=== PATIENT | female | born 1950 | race Caucasian/White ===

== ENCOUNTER 2016-12-13 13:30 | Emergency (ER) | payer OTHER ==
[~2016-12-13] VITALS: Ht 162.6 cm; Wt 75.0 kg
[2016-12-13 13:31] VITALS: BP 133/74; PULSE 87; RESP 15; TEMP 97.8; O2SAT 98
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
[2016-12-13] MEDS ORDERED: IBUPROFEN 800 MG TAB PO ONE (15:00)
[2016-12-13] MEDS ORDERED: ROBA500T PO (15:27)
[2016-12-13] MEDS ORDERED: IBUP-232 PO (15:27)
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
--- NOTE | 2016-12-13 22:29 | EKG ---
Date Performed: 12/13/2016 Time Performed: 15:12:42 PTAGE: 66 years EKG: Sinus rhythm WITH SINUS ARRHYTHMIA POSSIBLE RIGHT VENTRICULAR CONDUCTION DELAY BORDERLINE ECG NO PREVIOUS TRACING DOCTOR: Neva Jorgensen Interpretating Date/Time 12/13/2016 22:27:35
== END 2016-12-13 16:01 | disposition home or self-care (01) ==
LOC: NETRI 13:30
DX: S20.219A Contusion of unspecified front wall of thorax, initial encounter (principal); R94.31 Abnormal electrocardiogram [ECG] [EKG]; V49.59XA Passenger injured in collision with other motor vehicles in traffic accident, initial encounter; Y92.410 Unspecified street and highway as the place of occurrence of the external cause
CPT/HCPCS: 71010; 93005